=== PATIENT | female | born 1950 ===

== ENCOUNTER → 2018-04-08 | Outpatient (CLI) | payer SELFPAY ==
[~2018-04-08] MED LIST: ABAC300; B Complex1 EAC2 PO; DRAMAMINE PO; ENAL10 PO; ENAL2.5 PO; Humulin N100 UNIT/1 SC; Humulin R500 UNIT/1 SC
[2018-04-08 19:15] LABS: Alanine Aminotransfer (ALT/SGP 22 U/L (12-78); Albumin, Blood 3.8 g/dL (3.4-5.0); Alk Phos 90 U/L (50-136); Anion Gap 9 mmol/L (6-16); Aspartate Aminotrans (AST/SGOT 8 U/L (12-37); Bilirubin, Total 0.1 mg/dL (0.1-1.0); Blood Urea Nitrogen 13 mg/dL (8-24); Bun/Creatinine Ratio 18.2 (12.0-20.0); CHOL/HDL RATIO 4.9; CO2, Blood 24 mmol/L (21-32); Calcium, Blood 10.7 mg/dL (8.5-10.1); Chloride, Blood 107 mmol/L (98-108); Cholesterol 233 mg/dL (50-200); Creatinine, Blood 0.71 mg/dL (0.40-1.00); Globulin, Blood 3.7 g/dL (2.2-4.0); Glomerular Filtration Rate >60 (60-); Glucose, Blood 110 mg/dL (70-99); HDL Cholesterol 48 mg/dL (>39); LDL/HDL RATIO 2.8; Low Density Lipoprotein Chol 133 mg/dL (0-110); Potassium, Blood 3.7 mmol/L (3.5-5.5); Sodium, Blood 140 mmol/L (136-145); Total Protein, Blood 7.5 g/dL (6.4-8.2); Triglycerides 262 mg/dL (30-160); Very Low Density Lipoprot Chol 52 mg/dL (6-32)
== END | disposition home or self-care (01) ==
LOC: LAB 15:36 → LAB SHORT 15:36
PROVIDERS: Nurse Practitioner Family
DX: E11.9 Type 2 diabetes mellitus without complications (principal)
CPT/HCPCS: 80053; 80061; 83036

== ENCOUNTER 2021-04-04 08:43 | Day surgery (SDC) | payer SELFPAY ==
[~2021-04-04] VITALS: Ht 165.1 cm; Wt 90.9 kg
--- NOTE | 2021-04-04 09:09 | NUR ---
04/04/21 0909 Jad Kirby TETRACAINE AND PLEDGET APPLIED TO THE RIGHT EYE PER ORDERS. DAUGHTER IS ACTING INTERPERTER FOR PATIENT PER HER WISHES.
== END 2021-04-04 10:35 | disposition home or self-care (01) ==
LOC: ORSCSDS 08:43
PROVIDERS: Ophthalmology
PROC: 08RJ3JZ Replacement of Right Lens with Synthetic Substitute, Percutaneous Approach (ICD-10-PCS; principal; 2021-04-04 10:00)
DX: H25.11 Age-related nuclear cataract, right eye (principal); I10 Essential (primary) hypertension; E11.9 Type 2 diabetes mellitus without complications; E66.01 Morbid (severe) obesity due to excess calories; Z68.33 Body mass index [BMI] 33.0-33.9, adult; Z79.82 Long term (current) use of aspirin; Z79.4 Long term (current) use of insulin; Z79.899 Other long term (current) drug therapy
CPT/HCPCS: 82947; J2001; J2250; J3010; J3301; V2632

== ENCOUNTER 2021-05-30 08:10 | Day surgery (SDC) | payer SELFPAY ==
[~2021-05-30] VITALS: Ht 167.6 cm; Wt 94.7 kg
[2021-05-30] MEDS ORDERED: METFORMIN ER1000 M2 PO (08:40)
--- NOTE | 2021-05-30 08:44 | NUR ---
05/30/21 0844 Kenzie Strong PLEDGET PLACED AT 0828 IN LT EYE PER ORDER. TETRACAINE DROP PLACED IN LT EYE AT 0825.
--- NOTE | 2021-05-30 10:38 | NUR ---
05/30/21 Lucille Cannon 1020 PT. TEARFUL. WAITING FOR DAUGHTER TO COME FOR TRANSLATION OF DISCHARGE INSTRUCTIONS. PT. TALKING WITH ANOTHER DAUGHTER ON THE PHONE & PT. HANDS ORSC.NSC THE PHONE. PER DAUGHTER ON THE PHONE PT. WANTING TO TAKE HER MEDICATIONS. INSTRUCTED DAUGHTER TO TELL PT. THAT SHE CAN RESUME MEDICATIONS. ILEANA, OTHER DAUGHTER DRIVING PT. HOME CAME & INSTRUCTIONS GIVEN TO PT. & DAUGHTER WITH UNDERSTANDING. INSTRUCTED DAUGHTER PT. WAS TEARFUL & PER ILEANA HER MOTHER WAS HAVING SOME PAIN AT THE SIDE OF HER OPERATIVE EYE. PT. COULDN'T DESCRIBE, DAUGHTER JUST SAID PAIN. PT. STATED "POQUITO", DAUGHTER SAID JUST A LITTLE. INSTRUCTED PT. & DAUGHTER TO CALL IF OTC PAIN MED DIDN'T HELP.
== END 2021-05-30 10:30 | disposition home or self-care (01) ==
LOC: ORSCSDS 08:10
PROVIDERS: Ophthalmology
PROC: 08RK3JZ Replacement of Left Lens with Synthetic Substitute, Percutaneous Approach (ICD-10-PCS; principal; 2021-05-30 09:15)
DX: H25.12 Age-related nuclear cataract, left eye (principal); I10 Essential (primary) hypertension; E11.9 Type 2 diabetes mellitus without complications; Z79.84 Long term (current) use of oral hypoglycemic drugs; Z79.899 Other long term (current) drug therapy; E66.9 Obesity, unspecified; Z68.33 Body mass index [BMI] 33.0-33.9, adult
CPT/HCPCS: 82947; J2001; J2250; J3010; J3301; V2632

== ENCOUNTER → 2024-07-05 | Outpatient (CLI) | payer OTHER ==
[~2024-07-05] MED LIST changes: +METFORMIN ER1000 M2 PO
[2024-07-05 17:34] LABS: Microalb/Creat Ratio UR, Rand Unable to Calculate mg/g (0.000-30.000); Microalbumin, Random Urine <5.000 mg/L (0.000-20.000); Protein, Urine Random <5.0 mg/dL (0.0-11.9); Protein/Creat Ratio, Ur Random Unable to Calculate
[2024-07-05 17:34] LABS: Calcium, Urine <5.0 mg/dL (< 17.5); Calcium, Urine Calculation Unable to Calculate mg/24hrs (42.0-353.0)
== END ==
LOC: LAB SHORT 06:00 → LAB 06:00
PROVIDERS: Family Medicine
DX: E11.9 Type 2 diabetes mellitus without complications (principal); I10 Essential (primary) hypertension; R79.89 Other specified abnormal findings of blood chemistry
CPT/HCPCS: 81050; 82043; 82340; 82570; 84156